=== PATIENT | female | born 1990 | race Caucasian/White ===

== ENCOUNTER 2021-11-23 01:50 | Emergency (ER) | payer BC | END 2021-11-23 03:06 | disposition home or self-care (01) | LOC: CSHERS 01:50 | DX: H66.93 Otitis media, unspecified, bilateral (principal); J01.90 Acute sinusitis, unspecified; F17.210 Nicotine dependence, cigarettes, uncomplicated | CPT/HCPCS: 99283 ==

== ENCOUNTER 2022-03-31 18:25 | Emergency (ER) | payer BC, SELFPAY | END 2022-03-31 20:07 | disposition left against medical advice (07) | LOC: CSHERS 18:25 | DX: Z53.21 Procedure and treatment not carried out due to patient leaving prior to being seen by health care provider (principal) ==

== ENCOUNTER 2022-06-29 18:46 | Emergency (ER) | payer OTHER ==
[2022-06-29 21:21] LABS: Bilirubin Neg (Negative); Blood, Urine Negative (Negative); Clarity Clear (Clear); Glucose, Urine (Dipstick) Normal (Negative); Ketone, Urine Negative (Negative); Leukocyte Negative (Negative); Nitrite Negative (Negative); Protein, Urine (Dipstick) Negative (Neg-Trace); Specific Gravity, Urine 1.025 (1.005-1.030); Urobilinogen Normal mg/dL (Less than 2)
== END 2022-06-29 21:58 | disposition home or self-care (01) ==
LOC: CSHERS 18:46
DX: J06.9 Acute upper respiratory infection, unspecified (principal)
CPT/HCPCS: 81003; 99283

== ENCOUNTER 2023-06-26 16:48 | Emergency (ER) | payer OTHER ==
[2023-06-26] MEDS ORDERED: Lidocaine/Transparent Dressing 1 EACH KIT ONE (17:01)
[2023-06-26] MEDS ORDERED: Boostrix 0.5 ML (Tdap) VIAL (>/=7 yrs of age) ONE (17:31)
== END 2023-06-26 17:42 | disposition home or self-care (01) ==
LOC: CSHERS 16:48
DX: S61.412A Laceration without foreign body of left hand, initial encounter (principal); F17.290 Nicotine dependence, other tobacco product, uncomplicated; Z23 Encounter for immunization; W26.0XXA Contact with knife, initial encounter; Y92.090 Kitchen in other non-institutional residence as the place of occurrence of the external cause
CPT/HCPCS: 12001; 90471; 90715

== ENCOUNTER 2024-09-12 11:05 | Emergency (ER) | payer BC | END 2024-09-12 13:00 | disposition home or self-care (01) | LOC: CSHERS 11:05 | DX: S93.601A Unspecified sprain of right foot, initial encounter (principal); F17.290 Nicotine dependence, other tobacco product, uncomplicated; X50.1XXA Overexertion from prolonged static or awkward postures, initial encounter | CPT/HCPCS: 99283 ==